=== PATIENT | male | born 1985 | race Caucasian/White ===

== ENCOUNTER 2018-05-27 08:54 | Outpatient (CLI) | payer BC ==
--- NOTE | 2018-05-27 09:17 | XRAY Report ---
Procedure Date: 05/27/2018 Accession Number: [id number] / [id number] Procedure: XR - Lumbar Spine 2 View CPT Code: FULL RESULT: EXAM: Lumbar Spine 2 View DATE: 05/27/2018 9:08 AM CLINICAL HISTORY: BILATERAL RADICULITIS COMPARISON: None. TECHNIQUE: 2 views. FINDINGS: Alignment: Normal. No spondylolisthesis or scoliosis. Bones: Five [id number] lumbar vertebral bodies are present. No fractures or bone lesions. Disks: Normal. Disk heights are maintained. Facets: Pars defect at L5 with associated degenerative changes. Sacroiliac Joints: Unremarkable. Soft Tissues: Normal. The visualized bowel gas pattern is normal. IMPRESSION: L5 pars defect with associated degenerative changes. [facility]
== END 2018-05-27 08:55 | disposition home or self-care (01) ==
LOC: DI 08:54
PROVIDERS: ATTEND Family Medicine
DX: M43.06 Spondylolysis, lumbar region (principal); M47.896 Other spondylosis, lumbar region
CPT/HCPCS: 72100

== ENCOUNTER 2020-09-20 16:41 | Outpatient (CLI) | payer BC | END 2020-09-20 16:42 | disposition home or self-care (01) | LOC: COV 16:41 | PROVIDERS: ATTEND Family Medicine | DX: R50.9 Fever, unspecified (principal); R05 Cough; R09.81 Nasal congestion; Z20.828 Contact with and (suspected) exposure to other viral communicable diseases ==

== ENCOUNTER 2024-01-17 08:24 | Outpatient (CLI) | payer OTHER ==
[2024-01-17 12:08] LABS: BASOPHILS % (AUTO) 0.7 %; EOSINOPHILS # (AUTO) 0.2 10^3/uL (0.0-0.7); EOSINOPHILS % (AUTO) 3.6 %; HCT - HEMATOCRIT 46.6 % (42.0-52.0); HGB - HEMOGLOBIN 15.1 g/dL (14.0-18.0); LYMPHOCYTES % (AUTO) 33.6 %; MEAN CORPUSCULAR HEMOGLOBIN 30.1 pg (27.0-31.0); MEAN CORPUSCULAR HGB CONC 32.4 g/dL (32.0-36.0); MEAN CORPUSCULAR VOLUME 92.8 fL (80.0-94.0); MONOCYTES # (AUTO) 0.5 10^3/uL (0.0-1.0); MONOCYTES % (AUTO) 8.3 %; NEUTROPHILS # (AUTO) 3.1 10^3/uL (1.5-6.6); NEUTROPHILS % (AUTO) 53.3 %; PLT - PLATELET COUNT 271 10^3/uL (130-450); RED BLOOD COUNT 5.02 10^6/uL (4.70-6.10); RED CELL DISTRIBUTION WIDTH 12.4 % (12.0-15.0); WHITE BLOOD COUNT 5.9 x10^3/uL (4.8-10.8)
[2024-01-17 12:34] LABS: ALBUMIN 4.9 g/dL (3.2-5.5); ALBUMIN/GLOBULIN RATIO 1.8 (1.0-2.2); ALKALINE PHOSPHATASE 47 IU/L (42-121); ALT ALANINE AMINOTRANSFERASE 14 IU/L (10-60); AST ASPARTATE AMINOTRANSFERASE 17 IU/L (10-42); BILIRUBIN,TOTAL 0.5 mg/dL (0.2-1.0); BUN - BLOOD UREA NITROGEN 12 mg/dL (6-20); CALCIUM 10.3 mg/dL (8.5-10.3); CARBON DIOXIDE - CO2 31 mmol/L (21-32); CHLORIDE 100 mmol/L (101-111); CHOL/HDL RATIO 3.8 (<5.0); CHOLESTEROL 172 mg/dL; CREATININE 1.1 mg/dL (0.6-1.3); GFR - MDRD 75 (>89); GLUCOSE 97 mg/dL (74-104); HDL CHOLESTEROL 45 mg/dL; LDL CHOLESTEROL,CALCULATED 115 mg/dL; LDL/HDL RATIO 2.6 (<3.6); POTASSIUM 4.1 mmol/L (3.5-4.5); SODIUM 136 mmol/L (135-145); TOTAL PROTEIN 7.6 g/dL (6.4-8.9); TRIGLYCERIDES 62 mg/dL (48-352); VLDL CHOLESTEROL 12 mg/dL
[2024-01-17 12:40] LABS: THYROID STIMULATING HORMONE 2.98 uIU/mL (0.34-5.60)
== END 2024-01-17 08:25 | disposition home or self-care (01) ==
LOC: LAB.N 08:24
PROVIDERS: ATTEND Physician Assistant
DX: Z13.9 Encounter for screening, unspecified (principal)
CPT/HCPCS: 36415; 80053; 80061; 83721; 84443; 85025

== ENCOUNTER 2024-04-25 10:10 | Outpatient (CLI) | payer OTHER ==
[2024-04-25 12:17] LABS: CALCIUM 10.2 mg/dL (8.5-10.3); POTASSIUM 3.7 mmol/L (3.5-4.5)
== END 2024-04-25 10:11 | disposition home or self-care (01) ==
LOC: LAB.N 10:10
PROVIDERS: ATTEND Physician Assistant
DX: R79.89 Other specified abnormal findings of blood chemistry (principal)
CPT/HCPCS: 36415; 80048